=== PATIENT | female | born 1965 | race American Indian/Alaskan Native ===

== ENCOUNTER 2018-02-24 03:19 | Emergency (ER) | payer BC ==
[2018-02-24 03:19] VITALS: BMI 26.4
[2018-02-24 03:34] VITALS: RESP 18; TEMP 98.1
[2018-02-24] MEDS ORDERED: DiphenhydrAMINE 50 mg/ml Inj IVP ONE (03:40)
--- NOTE | 2018-02-24 03:42 | ED PDOC ---
Arrival/HPI - General Chief Complaint: Allergic Reaction Time Seen by Provider: 02/24/18 03:38 Historian: Patient - History of Present Illness Narrative History of Present Illness (Text): 02/24/18 03:40 52 year old female, whose past medical history includes s Hypertension and Anemia, presents to the emergency department complaining of allergic reaction after eating a cupcake. Patient states she feels some fullness to the back of her throat. Patient denies any fever, chills, rash, chest pain, shortness of breath, abdominal pain, nausea, vomiting, diarrhea, urinary symptoms, back pain , neck pain, headache, dizziness, or any other complaints. Time/Duration: Prior to Arrival Symptom Onset: Sudden Symptom Course: Unchanged Activities at Onset: Light Context: Home Past Medical History - Provider Review Nursing Documentation Reviewed: Yes - Cardiac Hx Cardiac Disorders: Yes Hx Hypertension: Yes - Musculoskeletal/Rheumatological Hx Musculoskeletal Disorders: Yes Hx Arthritis: Yes - Psychiatric Hx Substance Use: No Family/Social History - Physician Review Nursing Documentation Reviewed: Yes Family/Social History: No Known Family HX Smoking Status: Never Smoked Hx Alcohol Use: No Hx Substance Use: No Allergies/Home Meds Allergies/Adverse Reactions: Allergies No Known Allergies Allergy (Verified 06/02/15 19:55) Home Medications: Home Meds Medication Instructions Recorded Confirmed Ferrous Sulfate [Feosol] 325 mg PO DAILY 02/24/18 02/24/18 Folic Acid 1 mg PO DAILY 02/24/18 02/24/18 Methotrexate 2.5 mg PO QWK 02/24/18 02/24/18 Valsartan [Diovan] 40 mg PO DAILY 02/24/18 02/24/18 Review of Systems - Physician Review All systems were reviewed & negative as marked: Yes - Review of Systems Constitutional: absent: Fevers, Other (Chills) ENT: Other (fullness to the back of her throat) Respiratory: absent: SOB Cardiovascular: absent: Chest Pain Gastrointestinal: absent: Abdominal Pain, Diarrhea, Nausea, Vomiting Genitourinary Female: absent: Dysuria, Frequency, Hematuria Musculoskeletal: absent: Back Pain Skin: absent: Rash Neurological: absent: Headache, Dizziness Physical Exam Vital Signs Reviewed: Yes Vital Signs Temp Pulse Resp BP Pulse Ox 02/24/18 03:33 98.1 F 77 18 161/99 H 98 Temperature: Afebrile Blood Pressure: Hypertensive Pulse: Regular Respiratory Rate: Normal Appearance: Positive for: Well-Appearing, Non-Toxic, Comfortable Pain Distress: None Mental Status: Positive for: Alert and Oriented X 3 - Systems Exam Head: Present: Atraumatic, Normocephalic Pupils: Present: PERRL Extroacular Muscles: Present: EOMI Conjunctiva: Present: Normal Mouth: Present: Moist Mucous Membranes Pharnyx: Present: Other (minimal edema to the uvula). No: Strider Neck: Present: Normal Range of Motion, Other (Supple) Respiratory/Chest: Present: Clear to Auscultation, Good Air Exchange. No: Respiratory Distress, Accessory Muscle Use Cardiovascular: Present: Regular Rate and Rhythm, Normal S1, S2. No: Murmurs Abdomen: No: Tenderness, Distention, Peritoneal Signs Back: Present: Normal Inspection Upper Extremity: Present: Normal Inspection. No: Cyanosis, Edema Lower Extremity: Present: Normal Inspection. No: Edema Neurological: Present: GCS=15, CN II-XII Intact, Speech Normal Skin: Present: Warm, Dry, Normal Color. No: Rashes Psychiatric: Present: Alert, Oriented x 3, Normal Insight, Normal Concentration Medical Decision Making ED Course and Treatment: 02/24/18 03:42 Impression: 52 year old female presents complaining of allergic reaction s/p eating a cupcake. Patient is complaining of fullness to the back of the throat. Plan: -- Benadryl, Solu-Medrol -- Reassess and disposition Progress Notes: - Medication Orders Current Medication Orders: Discontinued Medications Diphenhydramine HCl (Benadryl) 50 mg IVP ONCE ONE Stop: 02/24/18 03:41 Last Admin: 02/24/18 03:54 Dose: 50 mg IVP Administration Document 02/24/18 03:54 CNR (Rec: 02/24/18 03:54 CNR [id number]) Charges for Administration # of IVP Administrations 1 Methylprednisolone (Solu-Medrol) 125 mg IVP ONCE ONE Stop: 02/24/18 03:41 Last Admin: 02/24/18 03:54 Dose: 125 mg IVP Administration Document 02/24/18 03:54 CNR (Rec: 02/24/18 03:54 CNR [id number]) Charges for Administration # of IVP Administrations 1 - Scribe Statement The provider has reviewed the documentation as recorded by the Carlyle Escamilla Provider Scribe Attestation: All medical record entries made by the Scribe were at my direction and personally dictated by me. I have reviewed the chart and agree that the record accurately reflects my personal performance of the history, physical exam, medical decision making, and the department course for this patient. I have also personally directed, reviewed, and agree with the discharge instructions and disposition. Disposition/Present on Arrival - Present on Arrival Any Indicators Present on Arrival: No History of DVT/PE: No History of Uncontrolled Diabetes: No Urinary Catheter: No History of Decub. Ulcer: No History Surgical Site Infection Following: None - Disposition Have Diagnosis and Disposition been Completed?: Yes Diagnosis: Allergic reaction, Food allergy Disposition: HOME/ ROUTINE Disposition Time: 04:37 Patient Plan: Discharge Condition: GOOD Discharge Instructions (ExitCare): Food Allergy Additional Instructions: Take meds as prescribed/follow up with your doctor/any recurrent symptoms return to the emergency room Prescriptions: DiphenhydrAMINE [Benadryl] 50 mg PO Q6 PRN #24 cap PRN Reason: Itching / Pruritus predniSONE [Prednisone] 40 mg PO DAILY #10 tab Forms: [employer] ([place] Sor[place])
[2018-02-24 04:51] VITALS: BP 150/92; PULSE 67; O2SAT 96
== END 2018-02-24 04:51 | disposition home or self-care (01) ==
LOC: ED 03:19
DX: L27.2 Dermatitis due to ingested food (principal)
CPT/HCPCS: 96374; 96375; 99283; J1200; J2930